=== PATIENT | male | born 1965 | race Caucasian/White ===

== ENCOUNTER 2017-03-23 15:57 | Inpatient (IN) | payer SELFPAY ==
[~2017-03-23] VITALS: Ht 180.3 cm; Wt 128.3 kg
[2017-03-23] MEDS ORDERED: SODIUM CHLORIDE 0.9% 1,000 ML IV ONE (16:15)
[2017-03-23] MEDS ORDERED: ADENOSINE 6 MG/2 ML ONE ×2 (16:27→16:33)
[2017-03-23] MEDS ORDERED: SODIUM CHLORIDE 0.9% 1,000ML IVBOLUS ONE (16:30)
[2017-03-23] MEDS ORDERED: LORazepam 2 MG/ML, 1ML IVPush ONE (16:30)
[2017-03-23] MEDS ORDERED: SODIUM CHLORIDE FLUSH 10ML SYR IVF ONE (16:30)
[2017-03-23] MEDS ORDERED: ASPIRIN 81 MG TABLET CHEW PO ONE (16:30)
[2017-03-23] MEDS ORDERED: ASPIRIN 81 MG TABLET CHEW ONE (16:37)
[2017-03-23] MEDS ORDERED: LORazepam 2 MG/ML, 1ML ONE (16:37)
[2017-03-23 16:50] LABS: ASPARTATE AMINO TRANSFERASE 28 U/L (15-37); BLOOD UREA NITROGEN 26 mg/dL (7-18)
[2017-03-23 16:58] LABS: IS PT STATUS REG ER OR PRE ER? YES
[2017-03-23] MEDS ORDERED: METOPROLOL TARTRATE 25 MG TABLET PO ONE (17:00)
[2017-03-23] MEDS ORDERED: HEPARIN 5,000 UNITS/ML, 1ML IV ONE (18:00)
[2017-03-23] MEDS ORDERED: SODIUM CHLORIDE FLUSH 10ML SYR IVF PRN (19:00)
[2017-03-23] MEDS ORDERED: POLYETHYLENE GLYCOL 17 GM PACKET PO PRN (20:00)
[2017-03-23] MEDS ORDERED: ONDANSETRON 2MG/ML, 2ML IVPush PRN (20:00)
[2017-03-23] MEDS ORDERED: FUROSEMIDE 20 MG/2 ML IV ONE (20:00)
[2017-03-23] MEDS ORDERED: BISACODYL 10 MG SUPP PR PRN (20:00)
[2017-03-23] MEDS ORDERED: morphine SULFATE 10 MG/ML, 1ML IVPush PRN (20:00)
[2017-03-23] MEDS ORDERED: NITROGLYCERIN 0.4 MG BOTTLE (25 TABS) SL PRN (20:00)
[2017-03-23 20:04] VITALS: BP 118/85
[2017-03-23] MEDS ORDERED: MAGNESIUM SULFATE PMX 2GM/50ML 50 ML IV ONE (22:00)
[2017-03-23] MEDS: ATORVASTATIN 80 MG TABLET PO SCH (22:08)
[2017-03-23] MEDS: HEPARIN 25,000 UNITS/500ML PMX 500 ML IV PRN (22:11)
[2017-03-23 23:16] LABS: IS PT STATUS REG ER OR PRE ER? NO
[2017-03-23 23:40] LABS: DAU SCREEN DISCLAIMER
[2017-03-24 02:16] VITALS: BP_SYST 139; BP_SYST 142; BP_DIAS 104; BP_DIAS 92
[2017-03-24 05:17] LABS: BLOOD UREA NITROGEN 27 mg/dL (7-18)
[2017-03-24 05:21] LABS: ASPARTATE AMINO TRANSFERASE 21 U/L (15-37)
[2017-03-24 05:27] LABS: IS PT STATUS REG ER OR PRE ER? NO
[2017-03-24 05:42] VITALS: BP 142/102
[2017-03-24] MEDS: ASPIRIN 81 MG TABLET EC PO SCH (05:43)
[2017-03-24] MEDS: CARVEDILOL 3.125 MG TABLET PO SCH ×2 (05:43→17:04)
[2017-03-24] MEDS: HEPARIN 5,000 UNITS/ML, 1ML IV PRN ×3 (06:08→20:11)
[2017-03-24] MEDS ORDERED: FUROSEMIDE 20 MG/2 ML IV SCH (07:30)
[2017-03-24 09:41] VITALS: BP 137/89
[2017-03-24] MEDS: LISINOPRIL 5 MG TABLET PO SCH (09:42)
[2017-03-24] MEDS: SENNA/DOCUSATE TABLET PO SCH (09:42)
[2017-03-24 13:29] VITALS: BP 143/91
[2017-03-24] MEDS: FUROSEMIDE 20 MG/2 ML IV SCH (17:04)
[2017-03-24] MEDS: HEPARIN 25,000 UNITS/500ML PMX 500 ML IV PRN (17:56)
[2017-03-24 20:00] VITALS: BP 132/89
[2017-03-24] MEDS: ATORVASTATIN 80 MG TABLET PO SCH (20:11)
[2017-03-24] MEDS ORDERED: LORazepam 2 MG/ML, 1ML IVPush ONE (21:30)
[2017-03-25 01:42] VITALS: BP 129/89
[2017-03-25 05:46] LABS: BLOOD UREA NITROGEN 27 mg/dL (7-18)
[2017-03-25 05:50] LABS: IS PT STATUS REG ER OR PRE ER? NO
[2017-03-25] MEDS: ASPIRIN 81 MG TABLET EC PO SCH (06:22)
[2017-03-25] MEDS: CARVEDILOL 3.125 MG TABLET PO SCH (06:22)
[2017-03-25] MEDS: LISINOPRIL 5 MG TABLET PO SCH (07:26)
[2017-03-25] MEDS: SENNA/DOCUSATE TABLET PO SCH (07:27)
[2017-03-25] MEDS: FUROSEMIDE 20 MG/2 ML IV SCH ×2 (07:27→16:35)
[2017-03-25] MEDS ORDERED: REGADENOSON 0.4 MG/5 ML SYRINGE ONE (08:12)
[2017-03-25 10:13] VITALS: BP 154/86
[2017-03-25] MEDS ORDERED: SODIUM CHLORIDE 0.9% 1,000 ML IV SCH (10:38)
[2017-03-25 16:27] VITALS: BP 120/83
[2017-03-25] MEDS ORDERED: ADENOSINE 6 MG/2 ML ONE (17:51)
[2017-03-25] MEDS ORDERED: ADENOSINE 6 MG/2 ML IVPush ONE ×2 (18:00)
[2017-03-25 18:04] VITALS: BP_SYST 115; BP_SYST 91; BP_DIAS 56; BP_DIAS 71
[2017-03-25] MEDS: ATORVASTATIN 80 MG TABLET PO SCH (20:49)
[2017-03-25] MEDS: TEMAZEPAM 15 MG CAPSULE PO PRN (20:51)
[2017-03-25 21:01] VITALS: BP 109/81
[2017-03-26] MEDS: ACETAMINOPHEN 325 MG TABLET PO PRN (00:47)
[2017-03-26 02:00] VITALS: BP 135/84
[2017-03-26 06:08] LABS: BLOOD UREA NITROGEN 24 mg/dL (7-18)
[2017-03-26 07:47] VITALS: BP 118/76
[2017-03-26] MEDS ORDERED: KETOROLAC 30 MG/1 ML IVPush ONE (08:00)
[2017-03-26] MEDS: SENNA/DOCUSATE TABLET PO SCH (08:47)
[2017-03-26] MEDS: FUROSEMIDE 20 MG/2 ML IV SCH ×2 (08:47→17:56)
[2017-03-26] MEDS: LISINOPRIL 20 MG TABLET PO SCH (08:47)
[2017-03-26] MEDS: ASPIRIN 81 MG TABLET EC PO SCH (08:47)
[2017-03-26] MEDS: SODIUM CHLORIDE 0.9% 1,000 ML IV SCH ×2 (08:47→20:02)
[2017-03-26] MEDS ORDERED: CARVEDILOL 3.125 MG TABLET PO SCH (10:00)
[2017-03-26] MEDS ORDERED: FENTANYL PF 250 MCG/5ML ONE (12:31)
[2017-03-26] MEDS ORDERED: MIDAZOLAM 1 MG/ML, 5ML ONE (12:31)
[2017-03-26] MEDS ORDERED: ONDANSETRON 2MG/ML, 2ML ONE (12:35)
[2017-03-26] MEDS ORDERED: SUCCINYLCHOLINE 20 MG/ML, 10ML ONE (12:35)
[2017-03-26] MEDS ORDERED: DEXAMETHASONE 4 MG/ML, 1ML ONE (12:35)
[2017-03-26] MEDS ORDERED: PROPOFOL 10 MG/ML, 20ML ONE (12:35)
[2017-03-26] MEDS ORDERED: LIDOCAINE 2%, 20ML ONE (12:37)
[2017-03-26] MEDS ORDERED: ACETAMINOPHEN 325 MG TABLET PO PRN (14:30)
[2017-03-26] MEDS ORDERED: MIDAZOLAM 1 MG/ML, 2ML IV PRN (14:30)
[2017-03-26] MEDS ORDERED: PROMETHAZINE 25 MG/ML, 1ML IV PRN (14:30)
[2017-03-26] MEDS ORDERED: ONDANSETRON 2MG/ML, 2ML IVPush PRN (14:30)
[2017-03-26] MEDS ORDERED: OXYcodone 5 MG/5 ML ORAL.SOL UDC PO PRN (14:30)
[2017-03-26] MEDS ORDERED: HYDROmorphone 1 MG/ML, 1ML IV PRN (14:30)
[2017-03-26] MEDS ORDERED: ACETAMINOPHEN 650 MG/20.3 ML UDC ONE (14:55)
[2017-03-26] MEDS ORDERED: FENTANYL PF 100 MCG/2ML ONE (14:55)
[2017-03-26] MEDS ORDERED: OXYcodone 5 MG/5 ML ORAL.SOL UDC ONE (14:55)
[2017-03-26] MEDS: FENTANYL PF 100 MCG/2ML IV PRN ×2 (15:20→15:32)
[2017-03-26 16:36] VITALS: BP 117/78
[2017-03-26] MEDS: CARVEDILOL 3.125 MG TABLET PO SCH (17:56)
[2017-03-26 19:56] VITALS: BP 141/95
[2017-03-26] MEDS: ATORVASTATIN 80 MG TABLET PO SCH (19:58)
[2017-03-27] MEDS: ACETAMINOPHEN 325 MG TABLET PO PRN (01:07)
[2017-03-27] MEDS: TEMAZEPAM 15 MG CAPSULE PO PRN (01:11)
[2017-03-27 01:13] VITALS: BP 111/70
[2017-03-27] MEDS: ASPIRIN 81 MG TABLET EC PO SCH (06:39)
[2017-03-27] MEDS: CARVEDILOL 3.125 MG TABLET PO SCH ×2 (06:39→18:14)
[2017-03-27 07:48] VITALS: BP 141/85
[2017-03-27] MEDS: FUROSEMIDE 20 MG/2 ML IV SCH ×2 (09:37→18:14)
[2017-03-27] MEDS: LISINOPRIL 20 MG TABLET PO SCH (09:37)
[2017-03-27] MEDS: SENNA/DOCUSATE TABLET PO SCH (09:37)
[2017-03-27] MEDS: SPIRONOLACTONE 25 MG TABLET PO SCH (10:46)
[2017-03-27] MEDS: HEPARIN 5,000 UNITS/ML, 1ML SQ SCH ×2 (14:30→20:52)
[2017-03-27 15:14] VITALS: BP 127/80
[2017-03-27 18:13] VITALS: BP 149/81
[2017-03-27 18:58] VITALS: BP 134/91
[2017-03-27] MEDS: ATORVASTATIN 80 MG TABLET PO SCH (20:53)
[2017-03-28 01:00] VITALS: BP 145/87
[2017-03-28 02:00] VITALS: BP 145/87
[2017-03-28 05:19] LABS: BLOOD UREA NITROGEN 27 mg/dL (7-18)
[2017-03-28] MEDS: ASPIRIN 81 MG TABLET EC PO SCH (05:24)
[2017-03-28] MEDS: HEPARIN 5,000 UNITS/ML, 1ML SQ SCH (05:24)
[2017-03-28] MEDS: CARVEDILOL 3.125 MG TABLET PO SCH (05:24)
[2017-03-28 07:20] VITALS: BP 129/88
[2017-03-28] MEDS: FUROSEMIDE 20 MG/2 ML IV SCH (07:30)
[2017-03-28] MEDS ORDERED: FUROSEMIDE 40 MG TABLET PO SCH ×4 (09:00→17:00)
[2017-03-28] MEDS: LISINOPRIL 20 MG TABLET PO SCH (09:47)
[2017-03-28] MEDS: SPIRONOLACTONE 25 MG TABLET PO SCH (09:48)
[2017-03-28] MEDS: SENNA/DOCUSATE TABLET PO SCH (09:48)
[2017-03-28] MEDS ORDERED: CARVEDILOL 6.25 MG TABLET PO ONE (10:00)
[2017-03-28] MEDS ORDERED: POLYETHYLENE GLYCOL 17 GM PACKET NG ONE (11:00)
[2017-03-28] MEDS ORDERED: BISACODYL 10 MG SUPP PR SCH (11:30)
[2017-03-28] MEDS ORDERED: ATOR80TA75 PO (13:14)
[2017-03-28] MEDS ORDERED: CARV12.543 PO (13:15)
[2017-03-28] MEDS ORDERED: ASPI-621 PO (13:15)
[2017-03-28] MEDS ORDERED: LISI-170 PO (13:17)
[2017-03-28] MEDS ORDERED: FURO-93 PO (13:17)
[2017-03-28] MEDS ORDERED: SPIR25TA3 PO (13:19)
[2017-03-28] MEDS ORDERED: FUROSEMIDE 20 MG TABLET PO SCH (17:00)
[2017-03-28] MEDS ORDERED: CARVEDILOL 12.5 MG TABLET PO SCH (18:00)
== END 2017-03-28 13:43 | disposition home or self-care (01) | DRG 273 ==
LOC: ED 17:39 → EDIP 17:40 → ED 17:57 → 5SO 18:32 → DCLOUNGE 03-28 13:05
PROVIDERS: ADMIT Internal Medicine; ATTEND Internal Medicine
PROC: 02K83ZZ Map Conduction Mechanism, Percutaneous Approach (ICD-10-PCS; 2017-03-26)
PROC: 4A023FZ Measurement of Cardiac Rhythm, Percutaneous Approach (ICD-10-PCS; 2017-03-26)
PROC: 4A0234Z Measurement of Cardiac Electrical Activity, Percutaneous Approach (ICD-10-PCS; 2017-03-26)
PROC: 02583ZZ Destruction of Conduction Mechanism, Percutaneous Approach (ICD-10-PCS; principal; 2017-03-26 12:15)
DX: I47.1 Supraventricular tachycardia (principal); I21.4 Non-ST elevation (NSTEMI) myocardial infarction; I50.43 Acute on chronic combined systolic (congestive) and diastolic (congestive) heart failure; N17.0 Acute kidney failure with tubular necrosis; E44.1 Mild protein-calorie malnutrition; Z68.41 Body mass index [BMI] 40.0-44.9, adult; R17 Unspecified jaundice; I42.9 Cardiomyopathy, unspecified; F17.210 Nicotine dependence, cigarettes, uncomplicated; I25.10 Atherosclerotic heart disease of native coronary artery without angina pectoris; E66.9 Obesity, unspecified; F15.10 Other stimulant abuse, uncomplicated; I87.2 Venous insufficiency (chronic) (peripheral); D72.829 Elevated white blood cell count, unspecified; K59.00 Constipation, unspecified; Z71.6 Tobacco abuse counseling; Z88.0 Allergy status to penicillin; Z83.3 Family history of diabetes mellitus
CPT/HCPCS: 36415; 71010; 78452; 80048; 80053; 80061; 80307; 83735; 83880; 84439; 84443; 84484; 85025; 85520; 93005; 93017; 93306; 93613; 93621; 93623; 93653; 93970; 99291; C1894; J0153; J1100; J1644; J1885; J2250; J2405; J2704; J2785; J3010; J3490; A9502; C1730; C2630; C9898; J0330; J1940; J2060; J3475; J7030

== ENCOUNTER 2017-04-06 01:11 | Emergency (ER) | payer MEDICAID ==
[~2017-04-06] VITALS: Ht 180.3 cm; Wt 121.2 kg
[~2017-04-06 01:11] MED LIST: ASPI-621 PO; ATOR80TA75 PO; CARV12.543 PO; FURO-93 PO; LISI-170 PO; SPIR25TA3 PO
[2017-04-06 01:57] LABS: ASPARTATE AMINO TRANSFERASE 35 U/L (15-37); BLOOD UREA NITROGEN 38 mg/dL (7-18)
[2017-04-06] MEDS ORDERED: SODIUM CHLORIDE FLUSH 10ML SYR IVF ONE (02:00)
[2017-04-06 02:04] LABS: IS PT STATUS REG ER OR PRE ER? YES
[2017-04-06 03:26] VITALS: BP 109/55
== END 2017-04-06 03:43 | disposition home or self-care (01) ==
LOC: ED 01:32
DX: R06.00 Dyspnea, unspecified (principal); R42 Dizziness and giddiness; R00.2 Palpitations; I10 Essential (primary) hypertension
CPT/HCPCS: 36415; 71010; 80053; 83880; 84484; 85025; 93005; 99285

== ENCOUNTER 2017-04-17 21:13 | Emergency (ER) | payer MEDICAID ==
[~2017-04-17] VITALS: Ht 180.3 cm; Wt 125.9 kg
[2017-04-17] MEDS ORDERED: DIPH,PERTUSS(ACELL),TET VAC/PF 0.5 ML IM-VACC ONE ×2 (22:16→22:30)
[2017-04-17] MEDS ORDERED: LIDOCAINE 1%, 20ML ONE (22:16)
[2017-04-17] MEDS ORDERED: LIDOCAINE 1%, 20ML SQ ONE (22:30)
[2017-04-17] MEDS ORDERED: BACITRACIN ZINC OINT 500U/GM, 0.9 GM ONE (23:29)
[2017-04-17 23:39] VITALS: BP 136/91
== END 2017-04-17 23:41 | disposition home or self-care (01) ==
LOC: ED 23:20
DX: S80.811A Abrasion, right lower leg, initial encounter (principal); I50.9 Heart failure, unspecified; I11.0 Hypertensive heart disease with heart failure; Z79.82 Long term (current) use of aspirin; X58.XXXA Exposure to other specified factors, initial encounter; Y93.01 Activity, walking, marching and hiking; Y92.096 Garden or yard of other non-institutional residence as the place of occurrence of the external cause; Y99.8 Other external cause status
CPT/HCPCS: 36415; 85025; 85610; 85730; 90471; 90715

== ENCOUNTER → 2017-05-10 | Outpatient (CLI) | payer MEDICAID | END | disposition home or self-care (01) | LOC: CFH 10:03 | PROVIDERS: ATTEND Physician Assistant | DX: I13.0 Hypertensive heart and chronic kidney disease with heart failure and stage 1 through stage 4 chronic kidney disease, or unspecified chronic kidney disease (principal); I50.22 Chronic systolic (congestive) heart failure; N18.9 Chronic kidney disease, unspecified; I25.10 Atherosclerotic heart disease of native coronary artery without angina pectoris; E78.2 Mixed hyperlipidemia | CPT/HCPCS: 71020 ==

== ENCOUNTER 2017-07-17 16:27 | Inpatient (IN) | payer MEDICAID ==
[~2017-07-17] VITALS: Ht 182.9 cm; Wt 143.2 kg
[~2017-07-17 16:27] MED LIST changes: +ATOR-2 PO; -ATOR80TA75 PO
[2017-07-17] MEDS ORDERED: SODIUM CHLORIDE FLUSH 10ML SYR IVF ONE (17:00)
[2017-07-17 17:02] LABS: HEMATOCRIT 43.6 % (39.2-51.8); HEMOGLOBIN 14.7 g/dL (13.7-18.0); WHITE BLOOD COUNT 8.6 x10^3/uL (3.4-10)
[2017-07-17 17:16] LABS: ASPARTATE AMINO TRANSFERASE 21 U/L (15-37); BLOOD UREA NITROGEN 27 mg/dL (7-18)
[2017-07-17] MEDS ORDERED: SODIUM CHLORIDE FLUSH 10ML SYR IVF PRN (19:00)
[2017-07-17 20:18] VITALS: BP 137/80
[2017-07-17] MEDS ORDERED: DOCUSATE 100 MG CAPSULE PO PRN (21:00)
[2017-07-17] MEDS ORDERED: ONDANSETRON 2MG/ML, 2ML IVPush PRN (21:00)
[2017-07-17] MEDS: ENOXAPARIN 40 MG/0.4 ML SQ SCH (21:00)
[2017-07-17] MEDS: SODIUM CHLORIDE FLUSH 10ML SYR IVF SCH (21:00)
[2017-07-17] MEDS ORDERED: POLYETHYLENE GLYCOL 17 GM PACKET PO PRN (21:00)
[2017-07-17] MEDS ORDERED: BISACODYL 10 MG SUPP PR PRN (21:00)
[2017-07-17] MEDS ORDERED: hydrALAzine 20 MG/ML, 1ML IVPush PRN (21:00)
[2017-07-17] MEDS ORDERED: ALBUTEROL SULFATE 2.5 MG/3 ML NPPB PRN (21:30)
[2017-07-17] MEDS: FUROSEMIDE 40 MG/4 ML IV SCH (23:40)
[2017-07-18 02:15] VITALS: BP 116/72
[2017-07-18 05:43] LABS: BLOOD UREA NITROGEN 28 mg/dL (7-18)
[2017-07-18 07:56] VITALS: BP 120/80
[2017-07-18] MEDS: FUROSEMIDE 40 MG/4 ML IV SCH ×2 (08:02→17:42)
[2017-07-18] MEDS: SODIUM CHLORIDE FLUSH 10ML SYR IVF SCH ×2 (08:02→20:04)
[2017-07-18] MEDS: ASPIRIN 81 MG TABLET EC PO SCH (10:49)
[2017-07-18] MEDS: ACETAMINOPHEN 325 MG TABLET PO PRN (10:49)
[2017-07-18] MEDS ORDERED: SODIUM CHLORIDE NASAL SPRAY 45ML BOTTLE NAS PRN (13:00)
[2017-07-18 13:59] VITALS: BP 133/75
[2017-07-18 18:58] VITALS: BP 149/80
[2017-07-18] MEDS: ATORVASTATIN 80 MG TABLET PO SCH (20:05)
[2017-07-18] MEDS: CARVEDILOL 12.5 MG TABLET PO SCH (20:05)
[2017-07-18] MEDS: ENOXAPARIN 40 MG/0.4 ML SQ SCH (20:06)
[2017-07-19 01:45] VITALS: BP 135/71
[2017-07-19 04:53] LABS: HEMATOCRIT 45.2 % (39.2-51.8); HEMOGLOBIN 15.3 g/dL (13.7-18.0); WHITE BLOOD COUNT 7.6 x10^3/uL (3.4-10)
[2017-07-19 05:05] LABS: BLOOD UREA NITROGEN 32 mg/dL (7-18)
[2017-07-19] MEDS: SPIRONOLACTONE 25 MG TABLET PO SCH (07:47)
[2017-07-19] MEDS: CARVEDILOL 12.5 MG TABLET PO SCH ×2 (07:47→20:56)
[2017-07-19] MEDS: ASPIRIN 81 MG TABLET EC PO SCH (07:47)
[2017-07-19] MEDS: LISINOPRIL 20 MG TABLET PO SCH (07:48)
[2017-07-19] MEDS: FUROSEMIDE 40 MG/4 ML IV SCH ×2 (07:55→16:49)
[2017-07-19] MEDS: SODIUM CHLORIDE FLUSH 10ML SYR IVF SCH ×2 (07:55→21:00)
[2017-07-19 08:00] VITALS: BP 118/80
[2017-07-19 14:17] VITALS: BP 104/65
[2017-07-19] MEDS: ACETAMINOPHEN 325 MG TABLET PO PRN (17:33)
[2017-07-19 20:06] VITALS: BP 104/63
[2017-07-19] MEDS: ATORVASTATIN 80 MG TABLET PO SCH ×2 (20:56→21:00)
[2017-07-19] MEDS: ENOXAPARIN 40 MG/0.4 ML SQ SCH ×2 (20:56→20:57)
[2017-07-20 02:11] VITALS: BP 105/72
[2017-07-20 05:39] LABS: HEMATOCRIT 45.3 % (39.2-51.8); HEMOGLOBIN 15.2 g/dL (13.7-18.0); WHITE BLOOD COUNT 7.6 x10^3/uL (3.4-10)
[2017-07-20 05:51] LABS: BLOOD UREA NITROGEN 46 mg/dL (7-18)
[2017-07-20 07:21] VITALS: BP 115/69
[2017-07-20] MEDS ORDERED: FLU VACC QS2017-18 (36MOS+) UP/PF 0.5 ML IM-VACC ONE (08:00)
[2017-07-20] MEDS ORDERED: PNEUMOCOCCAL 23 VACCINE IM-VACC ONE (08:00)
[2017-07-20] MEDS: ASPIRIN 81 MG TABLET EC PO SCH (09:00)
[2017-07-20] MEDS ORDERED: FUROSEMIDE 40 MG/4 ML IV SCH (09:00)
[2017-07-20] MEDS: SPIRONOLACTONE 25 MG TABLET PO SCH (09:23)
[2017-07-20] MEDS: CARVEDILOL 12.5 MG TABLET PO SCH ×2 (09:23→20:36)
[2017-07-20] MEDS: LISINOPRIL 20 MG TABLET PO SCH (09:23)
[2017-07-20] MEDS: SODIUM CHLORIDE FLUSH 10ML SYR IVF SCH ×2 (09:24→20:36)
[2017-07-20 14:00] VITALS: BP 101/63
[2017-07-20 19:53] VITALS: BP 116/72
[2017-07-20] MEDS: ATORVASTATIN 80 MG TABLET PO SCH (20:36)
[2017-07-20] MEDS: ENOXAPARIN 40 MG/0.4 ML SQ SCH (20:37)
[2017-07-21 01:29] VITALS: BP 102/65
[2017-07-21 05:33] LABS: HEMATOCRIT 45.2 % (39.2-51.8); HEMOGLOBIN 15.1 g/dL (13.7-18.0); WHITE BLOOD COUNT 7.2 x10^3/uL (3.4-10)
[2017-07-21 05:39] LABS: BLOOD UREA NITROGEN 46 mg/dL (7-18)
[2017-07-21 07:22] VITALS: BP 121/75
[2017-07-21] MEDS ORDERED: FUROSEMIDE 40 MG TABLET PO SCH (09:00)
[2017-07-21] MEDS: SODIUM CHLORIDE FLUSH 10ML SYR IVF SCH (10:41)
[2017-07-21] MEDS: SPIRONOLACTONE 25 MG TABLET PO SCH (10:41)
[2017-07-21] MEDS: LISINOPRIL 20 MG TABLET PO SCH (10:41)
[2017-07-21] MEDS: CARVEDILOL 12.5 MG TABLET PO SCH (10:41)
[2017-07-21] MEDS: ASPIRIN 81 MG TABLET EC PO SCH (10:41)
[2017-07-21] MEDS ORDERED: FURO40TA6 PO (13:18)
[2017-07-21 14:30] VITALS: BP 130/79
== END 2017-07-21 16:24 | disposition home or self-care (01) | DRG 291 ==
LOC: ED 18:41 → EDIP 18:43 → SUATTDRO 18:55 → 5SO 19:54
PROVIDERS: ADMIT Hospitalist; ATTEND Internal Medicine
DX: I13.0 Hypertensive heart and chronic kidney disease with heart failure and stage 1 through stage 4 chronic kidney disease, or unspecified chronic kidney disease (principal); I50.43 Acute on chronic combined systolic (congestive) and diastolic (congestive) heart failure; J96.01 Acute respiratory failure with hypoxia; N17.9 Acute kidney failure, unspecified; E66.01 Morbid (severe) obesity due to excess calories; N18.3 Chronic kidney disease, stage 3 (moderate); I08.1 Rheumatic disorders of both mitral and tricuspid valves; I27.20 Pulmonary hypertension, unspecified; Z68.41 Body mass index [BMI] 40.0-44.9, adult; E78.5 Hyperlipidemia, unspecified; I25.5 Ischemic cardiomyopathy; I87.2 Venous insufficiency (chronic) (peripheral); F15.10 Other stimulant abuse, uncomplicated; I87.8 Other specified disorders of veins; Z52.4 Kidney donor; Z87.891 Personal history of nicotine dependence; Z91.19 Patient's noncompliance with other medical treatment and regimen; Z88.0 Allergy status to penicillin; Z88.1 Allergy status to other antibiotic agents; Z23 Encounter for immunization
CPT/HCPCS: 36415; 71020; 80048; 80053; 83735; 83880; 84100; 84484; 85025; 85610; 85730; 90686; 90732; 93005; 94640; 99285; C8929; J1650; J1940; J7613

== ENCOUNTER 2017-09-22 14:02 | Emergency (ER) | payer MEDICAID ==
[~2017-09-22] VITALS: Ht 180.3 cm; Wt 143.1 kg
[~2017-09-22 14:02] MED LIST changes: +FURO40TA6 PO
[2017-09-22 14:05] VITALS: BP 136/80
[2017-09-22] MEDS ORDERED: ASPIRIN 81 MG TABLET CHEW PO ONE (14:30)
[2017-09-22] MEDS ORDERED: SODIUM CHLORIDE FLUSH 10ML SYR IVF ONE (14:30)
[2017-09-22 14:36] LABS: HEMATOCRIT 40.7 % (39.2-51.8); HEMOGLOBIN 13.7 g/dL (13.7-18.0); WHITE BLOOD COUNT 7.9 x10^3/uL (3.4-10)
[2017-09-22 14:48] LABS: BLOOD UREA NITROGEN 42 mg/dL (7-18)
[2017-09-22 14:54] LABS: ASPARTATE AMINO TRANSFERASE 23 U/L (15-37); IS PT STATUS REG ER OR PRE ER? YES
[2017-09-22] MEDS ORDERED: ASPIRIN 81 MG TABLET CHEW ONE (16:12)
== END 2017-09-22 17:33 | disposition home or self-care (01) ==
LOC: ED 16:20
DX: R06.00 Dyspnea, unspecified (principal); R07.2 Precordial pain; I11.0 Hypertensive heart disease with heart failure; I50.9 Heart failure, unspecified; E78.5 Hyperlipidemia, unspecified
CPT/HCPCS: 36415; 71010; 80053; 83880; 84484; 85025; 93005; 99285

== ENCOUNTER 2018-05-10 21:28 | Inpatient (IN) | payer MEDICAID ==
[~2018-05-10] VITALS: Ht 180.3 cm; Wt 160.4 kg
[~2018-05-10 21:28] MED LIST changes: -SPIR25TA3 PO; +SPIR25TA5 PO
[2018-05-10] MEDS ORDERED: SACU1TAB PO (22:09)
[2018-05-10 22:36] LABS: BASOPHILS # (AUTO) 0.02 x10^3/uL (0-0.1); BASOPHILS % (AUTO) 0 % (0-1); EOSINOPHILS # (AUTO) 0.15 x10^3/uL (0-0.4); EOSINOPHILS % (AUTO) 2 % (1-7); LYMPHOCYTES # (AUTO) 1.63 x10^3/uL (1-3.4); LYMPHOCYTES % (AUTO) 19 % (22-44); MD NO; MEAN CORPUSCULAR HGB CONC 33.9 g/dL (33.2-36.2); MEAN CORPUSCULAR VOLUME 91.4 fL (81-97); MEAN PLATELET VOLUME 8.6 fL (7.4-10.4); MONOCYTES # (AUTO) 0.58 x10^3/uL (0.2-0.8); MONOCYTES % (AUTO) 7 % (2-9); NEUTROPHILS # (AUTO) 6.41 x10^3/uL (1.8-6.8); NEUTROPHILS % (AUTO) 73 % (42-75); PLATELET COUNT 200 x10^3/uL (130-400); RED BLOOD COUNT 4.48 x10^6/uL (4.38-5.82); RED CELL DISTRIBUTION WIDTH 16.2 % (9.4-14.8)
[2018-05-10 22:39] LABS: ALBUMIN 3.5 g/dL (3.4-5.0); ANION GAP 8 mmol/L (5-15); CALCIUM 7.5 mg/dL (8.5-10.1); CHLORIDE 106 mmol/L (98-107)
[2018-05-10 22:42] LABS: TROPONIN I < 0.015 ng/mL (0.000-0.045)
[2018-05-10] MEDS ORDERED: ASPIRIN 81 MG TABLET CHEW ONE (23:54)
[2018-05-11] MEDS ORDERED: MORPHINE SULFATE 4 MG/ML, 1ML IVPush PRN
[2018-05-11] MEDS ORDERED: ASPIRIN 81 MG TABLET CHEW PO ONE
[2018-05-11 00:27] VITALS: BP 112/71
[2018-05-11] MEDS ORDERED: NITROGLYCERIN 0.4 MG BOTTLE (25 TABS) SL PRN ×2 (01:00→23:30)
[2018-05-11] MEDS ORDERED: morphine SULFATE 10 MG/ML, 1ML IVPush PRN (01:00)
[2018-05-11] MEDS ORDERED: ONDANSETRON 2MG/ML, 2ML IVPush PRN ×2 (01:00)
[2018-05-11] MEDS ORDERED: POLYETHYLENE GLYCOL 17 GM PACKET PO PRN (01:00)
[2018-05-11] MEDS ORDERED: BISACODYL 10 MG SUPP PR PRN (01:00)
[2018-05-11] MEDS ORDERED: ACETAMINOPHEN 325 MG TABLET PO PRN (01:00)
[2018-05-11] MEDS: ATORVASTATIN 80 MG TABLET PO SCH ×2 (01:05→20:40)
[2018-05-11 02:25] VITALS: BP 112/71
[2018-05-11 05:17] LABS: ALANINE AMINOTRANSFERASE 32 U/L (12-78); ALBUMIN 3.3 g/dL (3.4-5.0); ANION GAP 9 mmol/L (5-15); CALCIUM 7.4 mg/dL (8.5-10.1); CHLORIDE 107 mmol/L (98-107)
[2018-05-11 05:18] LABS: BASOPHILS # (AUTO) 0.02 x10^3/uL (0-0.1); BASOPHILS % (AUTO) 0 % (0-1); EOSINOPHILS # (AUTO) 0.12 x10^3/uL (0-0.4); EOSINOPHILS % (AUTO) 2 % (1-7); LYMPHOCYTES # (AUTO) 1.72 x10^3/uL (1-3.4); LYMPHOCYTES % (AUTO) 22 % (22-44); MD NO; MEAN CORPUSCULAR HEMOGLOBIN 30.5 pg (27.5-34.5); MEAN CORPUSCULAR HGB CONC 33.2 g/dL (33.2-36.2); MEAN CORPUSCULAR VOLUME 91.9 fL (81-97); MEAN PLATELET VOLUME 8.7 fL (7.4-10.4); MONOCYTES # (AUTO) 0.63 x10^3/uL (0.2-0.8); MONOCYTES % (AUTO) 8 % (2-9); NEUTROPHILS % (AUTO) 68 % (42-75); PLATELET COUNT 172 x10^3/uL (130-400); RED BLOOD COUNT 4.36 x10^6/uL (4.38-5.82); RED CELL DISTRIBUTION WIDTH 16.6 % (9.4-14.8)
[2018-05-11 05:19] LABS: ALKALINE PHOSPHATASE 75 U/L (45-117); BILIRUBIN,TOTAL 0.3 mg/dL (0.2-1.0); TOTAL PROTEIN 7.2 g/dL (6.4-8.2)
[2018-05-11 05:21] LABS: TROPONIN I < 0.015 ng/mL (0.000-0.045)
[2018-05-11] MEDS ORDERED: REGADENOSON 0.4 MG/5 ML SYRINGE ONE (07:45)
[2018-05-11 08:13] VITALS: BP 113/73
[2018-05-11] MEDS: SENNA/DOCUSATE TABLET PO SCH (10:58)
[2018-05-11] MEDS: SPIRONOLACTONE 25 MG TABLET PO SCH (10:59)
[2018-05-11] MEDS: FUROSEMIDE 40 MG TABLET PO SCH (10:59)
[2018-05-11] MEDS: CARVEDILOL 12.5 MG TABLET PO SCH ×2 (10:59→20:40)
[2018-05-11] MEDS: SODIUM CHLORIDE FLUSH 10ML SYR IVF SCH ×2 (10:59→20:39)
[2018-05-11] MEDS: ASPIRIN 81 MG TABLET EC PO SCH (10:59)
[2018-05-11 11:20] LABS: TROPONIN I < 0.015 ng/mL (0.000-0.045)
[2018-05-11 14:00] VITALS: BP 123/72
[2018-05-11] MEDS: SACUBITRIL/VALSARTAN 24MG-26MG TAB PO SCH ×2 (14:06→20:40)
[2018-05-11 19:34] VITALS: BP 126/72
[2018-05-11 20:38] VITALS: BP 124/70
[2018-05-11] MEDS ORDERED: NITROGLYCERIN 0.4 MG/SPRAY SL PRN (23:30)
[2018-05-12] MEDS ORDERED: LORazepam 0.5MG TABLET PO ONE
[2018-05-12 01:24] VITALS: BP 115/66
[2018-05-12 08:05] VITALS: BP 115/74
[2018-05-12] MEDS: SODIUM CHLORIDE FLUSH 10ML SYR IVF SCH (09:00)
[2018-05-12] MEDS: SENNA/DOCUSATE TABLET PO SCH (09:42)
[2018-05-12] MEDS: FUROSEMIDE 40 MG TABLET PO SCH (09:42)
[2018-05-12] MEDS: SPIRONOLACTONE 25 MG TABLET PO SCH (09:42)
[2018-05-12] MEDS: ASPIRIN 81 MG TABLET EC PO SCH (09:42)
[2018-05-12] MEDS: CARVEDILOL 12.5 MG TABLET PO SCH (09:42)
[2018-05-12] MEDS: SACUBITRIL/VALSARTAN 24MG-26MG TAB PO SCH (09:44)
[2018-05-12 14:26] VITALS: BP 118/68
== END 2018-05-12 17:29 | disposition home or self-care (01) | DRG 281 ==
LOC: ED 22:17 → EDIP 23:33 → 5SO 05-11 00:30
PROVIDERS: ADMIT Hospitalist; ATTEND Hospitalist
DX: I21.9 Acute myocardial infarction, unspecified (principal); I13.0 Hypertensive heart and chronic kidney disease with heart failure and stage 1 through stage 4 chronic kidney disease, or unspecified chronic kidney disease; I50.22 Chronic systolic (congestive) heart failure; I38 Endocarditis, valve unspecified; E66.2 Morbid (severe) obesity with alveolar hypoventilation; Z68.42 Body mass index [BMI] 45.0-49.9, adult; N18.2 Chronic kidney disease, stage 2 (mild); E78.5 Hyperlipidemia, unspecified; E83.51 Hypocalcemia; I27.20 Pulmonary hypertension, unspecified; J45.909 Unspecified asthma, uncomplicated; Z90.5 Acquired absence of kidney; Z52.4 Kidney donor; Z88.0 Allergy status to penicillin; Z88.1 Allergy status to other antibiotic agents
CPT/HCPCS: 36415; 71045; 78452; 80048; 80053; 82040; 83880; 84484; 85025; 93005; 93017; 99285; J2785; A9502; C9898